=== PATIENT | female | born 1980 | race Caucasian/White ===

== ENCOUNTER 2017-09-06 13:09 | Emergency (ER) | payer MEDICAID ==
[2017-09-06 13:16] VITALS: BP 117/75
--- NOTE | 2017-09-06 15:54 | ED Physician Documentation ---
PD HPI HEENT - Stated complaint Stated Complaint: L SIDE PX - Chief complaint Chief Complaint: Heent - History obtained from History obtained from: Patient - History of Present Illness Timing - duration: Days Timing - details: Gradual onset, Still present Location: Tooth (left upper and left side of face pain with chewing.) Improves: No: Medication Associated symptoms: Headache (some left side). No: Fever, Congestion, Rhinorrhea, Facial swelling Recently seen: Not recently seen Review of Systems Constitutional: denies: Fever Nose: denies: Rhinorrhea / runny nose, Congestion Throat: denies: Sore throat Respiratory: denies: Cough PD PAST MEDICAL HISTORY - Past Medical History Cardiovascular: None Respiratory: None Neuro: None Endocrine/Autoimmune: None - Present Medications Home Medications: Ambulatory Orders Medication Instructions Recorded Confirmed Clindamycin HCl [Cleocin HCl] 300 mg PO TID #20 capsule 09/06/17 HYDROcod/ACETAM 5/325 [[place] 5/325] 1 tab PO Q6H PRN #15 tablet 09/06/17 Ibuprofen [Motrin] 600 mg PO TID #30 tab 09/06/17 - Allergies Allergies/Adverse Reactions: Allergies Allergy/AdvReac Type Severity Reaction Status Date / Time No Known Drug Allergies Allergy Verified 09/06/17 13:15 PD ED PE NORMAL - Vitals Vital signs reviewed: Yes - General General: Alert and oriented X 3, Well developed/nourished - HEENT HEENT: Ears normal, Pharynx benign. No: Dentition benign (cavities left upper with tenderness and mild gum swelling locally. The gum swelling is more at prior wisdom tooth extracted area with cavity of the 2nd molar before it. ) - Neck Neck: Supple, no meningeal sign, No adenopathy - Cardiac Cardiac: RRR, No murmur - Respiratory Respiratory: Clear bilaterally Results - Vitals Vitals: Oxygen O2 Source Room air PD MEDICAL DECISION MAKING - ED course Complexity details: reviewed old records, considered differential, d/w patient Departure - Departure Disposition: 01 Home, Self Care Clinical Impression: Pain, dental, Periapical abscess Condition: Stable Record reviewed to determine appropriate education?: Yes Instructions: ED Tooth Pain Follow-Up: [facility] [Provider Group] Prescriptions: Clindamycin HCl [Cleocin HCl] 300 mg PO TID #20 capsule HYDROcod/ACETAM 5/325 [[place] 5/325] 1 tab PO Q6H PRN #15 tablet PRN Reason: Pain Ibuprofen [Motrin] 600 mg PO TID #30 tab Comments: Drink lots of fluids. Ibuprofen 3 times a day for inflammation. Add Tylenol or hydrocodone if needed for pain. Clindamycin 3 times a day for a week for presumed infection at the root of the tooth. Follow-up with the [facility] dental on the as planned. Return if not improved over the next few days. Discharge Date/Time: 09/06/17 16:27
[2017-09-06] MEDS ORDERED: IBUPROFEN 600 MG TABLET PO STA (16:13)
[2017-09-06] MEDS ORDERED: ACETAMINOPHEN 325 MG TABLET PO STA (16:13)
[2017-09-06] MEDS ORDERED: CLINDAMYCIN 150 MG CAPSULE PO STA (16:13)
[2017-09-06] MEDS ORDERED: IBUPROFEN 600 MG TABLET PO ONE (16:26)
[2017-09-06] MEDS ORDERED: ACETAMINOPHEN 325 MG TABLET PO ONE (16:26)
[2017-09-06] MEDS ORDERED: CLINDAMYCIN 150 MG CAPSULE PO ONE (16:26)
== END 2017-09-06 16:27 | disposition home or self-care (01) ==
LOC: ED 13:09
DX: K04.7 Periapical abscess without sinus (principal); K08.89 Other specified disorders of teeth and supporting structures
CPT/HCPCS: 99283; A9270

== ENCOUNTER 2017-10-11 19:23 | Emergency (ER) | payer MEDICAID ==
[2017-10-11] MEDS ORDERED: LIDOCAINE 2% 10 ML MDV ONE (19:57)
[2017-10-11] MEDS ORDERED: LIDOCAINE 2% 10 ML MDV SUBQ STA (20:01)
--- NOTE | 2017-10-11 20:03 | ED Physician Documentation ---
PD HPI UPPER EXT INJURY - Stated complaint Stated Complaint: HAND LAC - Chief complaint Chief Complaint: Laceration - History obtained from History obtained from: Patient - History of Present Illness Location: Right, Hand Type of injury: Laceration (R hand, on a broken glass while washing dishes) Where injury occurred: Home Timing - onset: Today Timing - duration: Hours (2) Timing - details: Abrupt onset Pain level max: 2 Pain level now: 2 Improved by: Rest Worsened by: Other (laceration) Associated symptoms: No: Weakness, Numbness, Tingling, Swelling Contributing factors: No: Anticoagulated - Additonal information Additional information: pt is right handed, td 2 years ago. 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 : None Psych: None Musculoskeletal: None Derm: None - Past Surgical History Past Surgical History: No - Present Medications Home Medications: Ambulatory Orders Medication Instructions Recorded Confirmed Clindamycin HCl [Cleocin HCl] 300 mg PO TID #20 capsule 09/06/17 HYDROcod/ACETAM 5/325 [[place] 5/325] 1 tab PO Q6H PRN #15 tablet 09/06/17 Ibuprofen [Motrin] 600 mg PO TID #30 tab 09/06/17 - Allergies Allergies/Adverse Reactions: Allergies Allergy/AdvReac Type Severity Reaction Status Date / Time No Known Drug Allergies Allergy Verified 10/11/17 19:38 - Social History Does the pt smoke?: No Smoking Status: Never smoker Does the pt drink ETOH?: No Does the pt have substance abuse?: No - Immunizations Immunizations are current?: Yes Immunizations: TDAP current <10years - POLST Patient has POLST: No PD ED PE NORMAL - Vitals Vital signs reviewed: Yes - General General: Alert and oriented X 3, No acute distress - Derm Derm: Warm and dry - Neuro Neuro: Alert and oriented X 3 - Psych Psych: Normal mood, Normal affect PD ED PE EXPANDED - Extremities GABBY UE/Hands Visual: 1 - laceration (flap, curved, 2cm. NVI other than slight numbness to the medial aspect of the distal tip.) Results - Vitals Vitals: Vital Signs - 24 hr 10/11/17 10/11/17 19:34 20:59 Temperature 36.9 C 37.2 C Heart Rate 83 74 Respiratory 17 18 Rate Blood Pressure 123/80 141/69 H O2 Saturation 99 99 Oxygen O2 Source Room air Procedures - Laceration (location) R hand Length in cm: 2 Wound type: Curved, Flap, Clean Neurovascular status: Motor intact, Vascular intact Tendon involvement: Tendon intact Anesthesia: Lidocaine 2% Wound Preparation: Irrigated copiously NS Skin layer closure: Interrupted, Size #-0 - enter number (4), Sutures - enter # (3) Other: Tetanus UTD (tdap) Complexity: Simple PD MEDICAL DECISION MAKING - ED course Complexity details: considered differential, d/w patient ED course: Patient is a 37-year-old female who presents to the emergency department with a laceration to the right hand. This was repaired. Tolerated well. Does have a small area of anesthesia to the medial aspect of the distal phalanx of the right fifth digit. Warnings of infection and instructions on wound care given at bedside. Also counseled on how to minimize scarring. Tetanus is up-to-date Patient counseled regarding signs and symptoms for which I believe and urgent re -evaluation would be necessary. Patient with good understanding of and agreement to plan and is comfortable going home at this time This document was made in part using voice recognition software. While efforts are made to proofread this document, sound alike and grammatical errors may occur. Departure - Departure Disposition: 01 Home, Self Care Clinical Impression: Hand laceration Qualifiers: Encounter type: initial encounter Foreign body presence: without foreign body Laterality: right Qualified Code(s): S61.411A - Laceration without foreign body of right hand, initial encounter Condition: Good Instructions: ED Laceration Hand Follow-Up: your,doctor in 10 days for suture removal [Other] Comments: Remove the splint after 3 days. The stitches should be removed in about 10 days. Return if you worsen or notice redness, drainage from the wound Discharge Date/Time: 10/11/17 20:59
[2017-10-11 21:00] VITALS: BP 141/69
== END 2017-10-11 20:59 | disposition home or self-care (01) ==
LOC: ED 19:23
DX: S61.411A Laceration without foreign body of right hand, initial encounter (principal); W25.XXXA Contact with sharp glass, initial encounter; Y93.G1 Activity, food preparation and clean up; Y92.009 Unspecified place in unspecified non-institutional (private) residence as the place of occurrence of the external cause
CPT/HCPCS: 12001; 99283

== ENCOUNTER 2017-10-16 10:20 | Emergency (ER) | payer MEDICAID ==
[2017-10-16 10:31] VITALS: BP 126/76
--- NOTE | 2017-10-16 10:55 | ED Physician Documentation ---
History of Present Illness - Stated complaint Stated Complaint: WOUND CHECK - Chief complaint Chief Complaint: Ext Problem - History obtained from History obtained from: Patient (Pt with laceration to the palm of the left hand earlier this week. was seen in this er and had stitches placed. 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 : None Psych: None Musculoskeletal: None Derm: None - Past Surgical History Past Surgical History: No - Present Medications Home Medications: Ambulatory Orders Medication Instructions Recorded Confirmed Ibuprofen [Motrin] 600 mg PO TID #30 tab 09/06/17 10/16/17 - Allergies Allergies/Adverse Reactions: Allergies Allergy/AdvReac Type Severity Reaction Status Date / Time No Known Drug Allergies Allergy Verified 10/16/17 10:30 - Social History Does the pt smoke?: No Smoking Status: Never smoker Does the pt drink ETOH?: No Does the pt have substance abuse?: No - Immunizations Immunizations are current?: Yes Immunizations: TDAP current <10years - POLST Patient has POLST: No PD ED PE NORMAL - Vitals Vital signs reviewed: Yes - General General: Alert and oriented X 3 - HEENT HEENT: Atraumatic, Moist mucous membranes - Cardiac Cardiac: RRR, No murmur - Respiratory Respiratory: No respiratory distress, Clear bilaterally - Derm Derm: Other (pt with a 3cm laceration to the palm of the left hand at the MCP joint of the lettle finger. No surrounding redness no pain, no drainage. ) - Extremities Extremities: Other (laceration to the left hand. ) - Neuro Neuro: Alert and oriented X 3, Other (sensation intact to the left hand) Results - Vitals Vitals: Vital Signs - 24 hr 10/16/17 10:26 Temperature 36.5 C Heart Rate 70 Respiratory 16 Rate Blood Pressure 126/76 O2 Saturation 100 Oxygen O2 Source Room air PD MEDICAL DECISION MAKING - ED course Complexity details: d/w patient ED course: Pt with well healing wound to the left hand with [address] We discussed that it is out of the window to place new stitches, no signs of infection, N/V intact. Steristrips placed. pt informed that the remaining stitches needed removed in a couple days. She was given care instructions and return precautions. Departure - Departure Disposition: 01 Home, Self Care Clinical Impression: Wound dehiscence Condition: Good Instructions: Incision Care Follow-Up: primary,care provider [Other] Comments: follow up with your primary care provider to have the remaining stitches removed 10 days after they were placed.
== END 2017-10-16 10:59 | disposition home or self-care (01) ==
LOC: ED 10:20
DX: T81.33XA Disruption of traumatic injury wound repair, initial encounter (principal); X58.XXXA Exposure to other specified factors, initial encounter
CPT/HCPCS: 99282; 99283